=== PATIENT | male | born 1945 | race Caucasian/White ===

== ENCOUNTER → 2022-02-23 | Outpatient (CLI) | payer MEDICARE ==
[~2022-02-23] MED LIST: ATOR80 PO; CENTRUM SILVER1 EAC2 PO; ELIQUIS5 MG PO; Flomax0.4 MG; ZESTORETIC 20-121 EA PO
[2022-02-23 21:08] LABS: Campylobacter Sp Not Detected (NOT DETECT); Enteroaggregative E. coli-EAEC Not Detected (NOT DETECT); Enterotoxigenic E. coli-ETEC Not Detected (NOT DETECT); Plesiomonas Shigelloides Not Detected (NOT DETECT); Salmonella Sp Not Detected (NOT DETECT); Vibrio Cholerae Not Detected (NOT DETECT); Vibrio Sp Not Detected (NOT DETECT); Yersinia Enterocolitica Not Detected (NOT DETECT)
[2022-02-23 21:09] LABS: Adenovirus F 40/41 Not Detected (NOT DETECT); Astrovirus Not Detected (NOT DETECT); Cryptosporidium Not Detected (NOT DETECT); Cyclospora Cayetanensis Not Detected (NOT DETECT); E. Coli O157 Not Detected (NOT DETECT); Entamoeba Histolytica Not Detected (NOT DETECT); Enteropathogenic E. coli-EPEC Not Detected (NOT DETECT); Giardia Lamblia Not Detected (NOT DETECT); Norovirus GI/GII Not Detected (NOT DETECT); Rotavirus A Not Detected (NOT DETECT); Sapovirus Not Detected (NOT DETECT); Shiga Toxin-prod E. coli-STEC Not Detected (NOT DETECT); Shigella/Enteroin E. coli-EIEC Not Detected (NOT DETECT)
== END | disposition home or self-care (01) ==
LOC: LAB 14:27 → LAB SHORT 14:27
PROVIDERS: Internal Medicine
DX: I48.0 Paroxysmal atrial fibrillation (principal); E61.1 Iron deficiency; R19.7 Diarrhea, unspecified; R53.83 Other fatigue
CPT/HCPCS: 87507